=== PATIENT | female | born 1995 | race Caucasian/White ===

== ENCOUNTER 2019-05-09 05:39 | Emergency (ER) | payer OTHER ==
[2019-05-09] MEDS ORDERED: ACETAMINOPHEN 325 MG TABLET PO ONE (05:44)
--- NOTE | 2019-05-09 06:33 | RADIOLOGY REPORT (SQ) ---
EXAM DESCRIPTION: XR ANKLE 3 OR MORE VIEWS COMPLETED DATE/TME: 05/09/2019 00:00 CLINICAL HISTORY: 24 years, Female, injury COMPARISON: None. FINDINGS: 3 views of the left ankle. No acute fracture or dislocation. Normal osseous mineralization. Tibial plafond and talar dome have appropriate alignment. IMPRESSION: 1. No acute fracture or dislocation. copyright 2010 [employer]- All Rights Reserved
--- NOTE | 2019-05-09 08:25 | ER Document Report ---
ED General - General Chief Complaint: Ankle Injury Stated Complaint: ANKLE INJURY Time Seen by Provider: 05/09/19 08:19 Primary Care Provider: FATMATA GARCIA MD [ACTIVE STAFF] - Follow up in 3-5 days (For orthopedic follow up) TRAVEL OUTSIDE OF THE [place] IN LAST 30 DAYS: No - HPI Notes: 24-year-old female to the emergency department with complaints of left ankle injury that occurred this morning while working at [employer]. 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 She denies any other injuries and denies hitting her head or any loss of consciousness. She has not ambulated on the ankle since the injury. She states that the outer portion of the ankle is most tender and swollen. She did not take any medicine prior to arrival. - Related Data Allergies/Adverse Reactions: cyclosporine Allergy (Verified 05/09/19 05:43) Past Medical History - General Information source: Patient, Friend - Social History Smoking Status: Never Smoker Family History: Reviewed & Not Pertinent Patient has suicidal ideation: No Patient has homicidal ideation: No Pulmonary Medical History: Reports: Hx Asthma Renal/ Medical History: Denies: Hx Peritoneal Dialysis Review of Systems - Review of Systems Constitutional: No symptoms reported EENT: No symptoms reported Cardiovascular: No symptoms reported Respiratory: No symptoms reported Gastrointestinal: No symptoms reported Genitourinary: No symptoms reported Musculoskeletal: Joint pain - Ankle pain and swelling after injury, Ankle swelling Skin: No symptoms reported Hematologic/Lymphatic: No symptoms reported Neurological/Psychological: No symptoms reported -: Yes All other systems reviewed and negative Physical Exam - Vital signs Vitals: Temp Pulse Resp BP Pulse Ox 99.4 F 102 H 18 109/67 96 05/09/19 05:44 05/09/19 05:44 05/09/19 05:44 05/09/19 05:44 05/09/19 05:44 Interpretation: Normal - General General appearance: Appears well, Alert - HEENT Head: Normocephalic, Atraumatic Eyes: Normal Pupils: PERRL - Respiratory Respiratory status: No respiratory distress Chest status: Nontender Breath sounds: Normal Chest palpation: Normal - Cardiovascular Rhythm: Regular Heart sounds: Normal auscultation Murmur: No - Abdominal Inspection: Normal Distension: No distension Bowel sounds: Normal Tenderness: Nontender Organomegaly: No organomegaly - Back Back: Normal, Nontender - Extremities Ankle: Tender, Edema - over The left lateral malleolus there is edema and mild ecchymosis. There is no mindy deformity. Patient has 5 out of 5 strength in dorsi and plantar flexion against resistance. She has nontender to palpation over the left knee and left hip. She can wiggle all toes of the left foot. Cap refill is less than 2 seconds. DP pulses are intact and equal.. No: Deformity, Ecchymosis - Neurological Neuro grossly intact: Yes Cognition: Normal Orientation: AAOx4 [place] Coma Scale Eye Opening: Spontaneous [place] Coma Scale Verbal: Oriented [place] Coma Scale Motor: Obeys Commands [place] Coma Scale Total: 15 Speech: Normal Motor strength normal: LUE, RUE, LLE, RLE Sensory: Normal - Psychological Associated symptoms: Normal mood, Flat affect - Skin Skin Temperature: Warm Skin Moisture: Dry Skin Color: Normal Course - Vital Signs Vital signs: Temp Pulse Resp BP Pulse Ox 99.4 F 102 H 18 109/67 96 05/09/19 05:44 05/09/19 05:44 05/09/19 05:44 05/09/19 05:44 05/09/19 05:44 - Diagnostic Test Radiology reviewed: Image reviewed, Reports reviewed Radiology results interpreted by me: 05/09/19 08:47 No acute fracture seen on x-ray - Transfer of Care Notes: 05/09/19 08:47 Impression: Left ankle sprain likely grade 1. We will splint the ankle, placed on crutches. Have encouraged RICE outpatient follow-up with orthopedist. NSAIDs for pain control. Patient agrees with the plan. Discharge - Discharge Clinical Impression: Left ankle sprain Condition: Good Disposition: HOME, SELF-CARE Instructions: Ankle Stirrup Splint ([facility]), Sprained Ankle ([facility]) Additional Instructions: Rest, ice, elevate, wear splint. Use crutches. Follow-up with orthopedist without fail for further evaluation and management. Take pain medicine as prescribed. Return if any worsening pain redness drainage from the ankle or fever. Prescriptions: Naproxen [Naprosyn] 500 mg PO BID #20 tablet Forms: Return to Work Referrals: FATMATA GARCIA MD [ACTIVE STAFF] - Follow up in 3-5 days (For orthopedic follow up)
[2019-05-09 09:03] VITALS: BP 101/60
== END 2019-05-09 09:05 | disposition home or self-care (01) ==
LOC: ER 05:39
DX: S93.402A Sprain of unspecified ligament of left ankle, initial encounter (principal); X50.9XXA Other and unspecified overexertion or strenuous movements or postures, initial encounter; Y99.0 Civilian activity done for income or pay; Z88.8 Allergy status to other drugs, medicaments and biological substances; J45.909 Unspecified asthma, uncomplicated
CPT/HCPCS: 99283; 73610; L4350